=== PATIENT | female | born 1990 | race African-American/Black ===

== ENCOUNTER 2017-08-07 15:40 | Emergency (ER) | payer MEDICAID ==
[~2017-08-07] VITALS: Ht 175.3 cm; Wt 81.6 kg
[~2017-08-07 15:40] MED LIST: ACETAMINOPHEN-1 EAC1 ORAL; ATIVAN2 MG ORAL; BUPROPION XL300 M1 PO; BUPROPION XL300 MG ORAL; CYCLOBENZAPRINE10 MG ORAL; GABAPENTIN600 MG ORAL; IBUPROFEN600 MG ORAL; KEFLEX500 MG ORAL; PROZAC10 MG ORAL; PROZAC20 MG ORAL; TRAMADOL HCL50 MG ORAL; TYLENOL EXTRA500 MG ORAL; ZITHROMAX250 MG ORAL
[2017-08-07] MEDS ORDERED: OMEPRAZOLE20 M2 ORAL (16:06)
--- NOTE | 2017-08-07 16:59 | Diagnostic Imaging Report ---
Indication: left ankle pain Comparison: None Findings: 3 views of the left ankle obtained. No acute fracture, malalignment, periostitis, or osteochondral defects are identified. Generalized soft tissue swelling is present, nonspecific in nature. Impression: No acute findings. Soft tissue swelling
--- NOTE | 2017-08-07 17:02 | Diagnostic Imaging Report ---
Indication: Pain right ankle Comparison: 07/03/2018 Findings: 3 views of the right ankle obtained. No acute fracture, malalignment, periostitis, or osteochondral defects are identified. Soft tissue swelling is present, nonspecific in nature. Impression: Soft tissue swelling
[2017-08-07] MEDS ORDERED: NORCO 5-325 TA1 EACH ORAL (17:57)
[2017-08-07] MEDS ORDERED: ULTRA-LIGHT RO1 EACH MC (17:58)
[2017-08-07 18:13] VITALS: BP 94/69
--- NOTE | 2017-08-07 23:05 | Emergency Room Report ---
History of Present Illness General Chief Complaint: Lower Extremity Injury Source: Patient Present Illness HPI 27-year-old female presents ER complaining of bilateral ankle pain. Patient states the pain has been present for one week following jogging. Patient denies history of acute injury to either ankle. Patient states she has difficulty ambulating secondary to pain. Patient requesting pain medication and xrays for assessment of pain. Patient denies fever, nausea, vomiting Allergies: Coded Allergies: No Known Allergies (Verified Allergy, Unknown, 07/31/09) Patient History Past Medical History: see triage record Social History: Denies: smoking, alcohol use, drug use Last Menstrual Period: on period Immunizations: UTD Reviewed Nursing Documentation: PMH: Agreed, PSxH: Agreed Nursing Documentation-PMH Past Medical History: No History, Except For Hx Gastrointestinal Problems: Yes - GERD Hx Neurological Problems: No - CYSTRIC HYDROMA Review of Systems All Other Systems: negative except mentioned in HPI Physical Exam Vital Signs Date Time Temp Pulse Resp B/P (MAP) Pulse Ox O2 Delivery O2 Flow Rate FiO2 08/07/17 16:01 98.4 84 14 94/69 96 Room Air Sp02 EP Interpretation: reviewed, normal General Appearance: alert, GCS 15, non-toxic, mild distress Head: normocephalic, atraumatic Eyes: bilateral eye normal inspection, bilateral eye PERRL Respiratory: lungs clear, normal breath sounds, no respiratory distress, speaking full sentences Cardiovascular #1: regular rate, rhythm Cardiovascular #2: 2+ dorsalis pedis (R), 2+ dorsalis pedis (L) Musculoskeletal: back normal, digits/nails normal, gait/station normal, non- tender, no calf tenderness, decreased range of motion - ankles secondary to pain , Sofy's Sign negative, swelling Neurologic: alert, oriented x3, responsive, sensory intact, abnormal gait Skin: normal color, no rash, warm/dry, other - no erythema, no ecchymosis, no blisters, no vesicles Lymphatic: no adenopathy Medical Decision Making PA Attestation Dr. Garza is my supervising physician with whom patient management has been discussed with. Diagnostic Impression: Primary Impression: Ankle pain ER Course Pt. presents to the ED c/o bilateral ankle pain. Ddx considered but are not limited to fracture, sprain, strain, contusion, cellulitis, DVT. Vital signs: are WNL, pt. is afebrile ORDERS: X-ray of the left ankle was ordered, results show soft tissue swelling, no acute fracture, per the official radiology report. X-ray of the right ankle was ordered, results show soft tissue swelling, no acute fracture, per the official radiology report. ED INTERVENTIONS: -Ibuprofen for pain JESÚS wrap placed over both ankles. The affected ankles were checked afterwards by me showing good alignment and support with distal neurovascular functioning intact. Crutches provided at patient request. DISCHARGE: -Rx provided for [place] for pain symptoms. -Rx provided for a walker. Patient instructed and understands that she will need to contact a medical supply store to find a walker to use. At this time pt. is stable for d/c to home. Will provide printed patient care instructions, and any necessary prescriptions. Patient instructed to follow with primary care provider in 3 - 5 days and to request further orthopedic follow-up. Care plan and follow up instructions have been discussed with the patient prior to discharge. Take medications as directed. Patient questions asked and answered. ER precautions given, patient instructed to return to ER immediately for any new or worsening of symptoms. Other X-Ray Diagnostic Results Other X-Ray Diagnostic Results #1: X-Ray ordered: Left ankle # of Views/Limited Vs Complete: 3 View Indication: Pain EP Interpretation: Yes PA Xray: Interpretation reviewed, by supervising MD, and agrees with findings. Interpretation: no dislocation, no fractures, other - Soft tissue swelling Impression: No acute disease PA Scribe Text Luke Louis PA-C Other X-Ray Diagnostic Results #2: X-Ray ordered: Right Ankle # of Views/Limited Vs Complete: 3 View Indication: Pain EP Interpretation: Yes Interpretation: no dislocation, no fractures, other - Soft tissue swelling Impression: No acute disease PA Scribe Text Luke Louis PA-C Last Vital Signs Date Time Temp Pulse Resp B/P (MAP) Pulse Ox O2 Delivery O2 Flow Rate FiO2 08/07/17 18:13 98.4 14 94/69 96 Room Air 08/07/17 16:01 84 Status: unchanged Reevaluation Impression Patient requesting crutches to go home with to aid in walking until walker prescription can be turned in. Patient called medical billing service office and they were closed, states she will get walker the following day. Disposition: HOME, SELF-CARE Condition: Stable Scripts Walker (ULTRA-LIGHT ROLLATOR) 1 Each Each EACH MC, #1 Prov: Rojelio Louis 08/07/17 Hydrocodone Bit/Acetaminophen 5-325* (NORCO 5-325*) 1 Each Tablet 1 TAB ORAL Q6H Y for For Pain, #10 TAB 0 Refills Prov: Rojelio Louis 08/07/17 Referrals: [facility]ERR[facility] (PCP) Patient Instructions: Ankle Pain Additional Instructions: Followup with primary care provider in 3 -5 days. Take medications as directed. Medications may cause drowsiness, do not take while driving, operating machinery, or with alcohol. Use walker for assistance when moving. Patient questions asked and answered. ER precautions given, patient instructed to return to ER immediately for any new or worsening of symptoms. Rojelio Louis Aug 07, 2017 23:05
== END 2017-08-07 19:00 | disposition home or self-care (01) ==
LOC: EMR 18:50
DX: M25.572 Pain in left ankle and joints of left foot (principal); M25.571 Pain in right ankle and joints of right foot; K21.9 Gastro-esophageal reflux disease without esophagitis
CPT/HCPCS: 99284

== ENCOUNTER 2018-02-02 10:12 | Emergency (ER) | payer MEDICAID, OTHER ==
[~2018-02-02] VITALS: Ht 175.3 cm; Wt 113.4 kg
[~2018-02-02 10:12] MED LIST changes: +NORCO 5-325 TA1 EACH ORAL; +OMEPRAZOLE20 M2 ORAL; +ULTRA-LIGHT RO1 EACH MC
[2018-02-02 10:30] VITALS: BP 110/27
[2018-02-02] MEDS ORDERED: AMOXICILLIN500 MG ORAL (11:09)
[2018-02-02] MEDS ORDERED: PROMETHAZINE-C118 M1 ORAL (11:09)
[2018-02-02 11:40] VITALS: BP_SYST 110; BP_SYST 115; BP_DIAS 24; BP_DIAS 27
--- NOTE | 2018-02-04 14:47 | Emergency Room Report ---
History of Present Illness General Chief Complaint: Upper Respiratory Illness Source: Patient Present Illness HPI 27-year-old female presents ED for evaluation. Patient complaining of cough and congestion for 2 weeks. States cough is productive with greenish phlegm. Also notes body aches, 4 out of 10, dull, nonradiating. Afebrile. States she is attempted to relieve symptoms with [id number] medications without improvement. Denies smoking. Denies history of asthma. Denies sick contacts or recent travel. No other aggravating relieving factors. Denies any other associated symptoms Allergies: Coded Allergies: No Known Allergies (Verified Allergy, Unknown, 07/31/09) Patient History Past Medical History: GERD Past Surgical History: none Pertinent Family History: none Social History: Denies: smoking, alcohol use, drug use Last Menstrual Period: last week Now: No Immunizations: UTD Reviewed Nursing Documentation: PMH: Agreed; PSxH: Agreed Nursing Documentation-PMH Past Medical History: No Stated History Hx Gastrointestinal Problems: Yes - GERD Hx Neurological Problems: No - CYSTRIC HYDROMA Review of Systems All Other Systems: negative except mentioned in HPI Physical Exam Vital Signs Date Time Temp Pulse Resp B/P (MAP) Pulse Ox O2 Delivery O2 Flow Rate FiO2 02/02/18 10:14 98.0 80 20 103/75 96 Room Air 98.1 02/02/18 10:40 100 Sp02 EP Interpretation: reviewed, normal General Appearance: no apparent distress, alert, GCS 15, non-toxic Head: normocephalic, atraumatic Eyes: bilateral eye normal inspection, bilateral eye PERRL ENT: hearing grossly normal, normal pharynx, no angioedema, normal voice Neck: full range of motion, supple/symm/no masses Respiratory: chest non-tender, normal breath sounds, crackles, speaking full sentences Cardiovascular #1: regular rate, rhythm, no edema Cardiovascular #2: 2+ carotid (R), 2+ carotid (L), 2+ radial (R), 2+ radial (L) , 2+ dorsalis pedis (R), 2+ dorsalis pedis (L) Gastrointestinal: normal bowel sounds, non tender, soft, non-distended, no guarding, no rebound Rectal: deferred Genitourinary: normal inspection, no CVA tenderness Musculoskeletal: back normal, gait/station normal, normal range of motion, non- tender Neurologic: alert, oriented x3, responsive, motor strength/tone normal, sensory intact, speech normal Psychiatric: judgement/insight normal, memory normal, mood/affect normal, no suicidal/homicidal ideation Reflexes: 3+ bicep (R), 3+ bicep (L), 3+ tricep (R), 3+ tricep (L), 3+ knee (R) , 3+ knee (L) Skin: normal color, no rash, warm/dry, well hydrated Lymphatic: no adenopathy Medical Decision Making Diagnostic Impression: Primary Impression: Atypical pneumonia ER Course Hospital Course 27-year-old female presents ED complaining of bodyaches and cough x2 weeks Differential diagnoses include: URI, pharyngitis, otitis media, asthma Clinical course Patient placed on stretcher. After initial history, physical exam reveals a female in no acute distress. Bilateral TM unremarkable. No pharyngeal erythema. No tonsillar exudates. No lymphadenopathy. + crackles on exam. abdomen soft. Presentation consistent with atypical pneumonia. Given presentation, i will prescribe abx Diagnosis - atypical pneumonia Stable and discharged home with Rx amoxiillin, promethazine/codeine. Instructed to followup with PMD. Return to ED if symptoms recur or worsen Last Vital Signs Date Time Temp Pulse Resp B/P (MAP) Pulse Ox O2 Delivery O2 Flow Rate FiO2 02/02/18 11:40 98.1 87 14 115/24 100 Room Air 98.1 02/02/18 11:40 100 Status: improved Disposition: HOME, SELF-CARE Condition: Stable Scripts Codeine/Promethazine Hcl* (PROMETHAZINE-CODEINE SYRUP*) 118 Ml Syrup 5 ML ORAL Q6H PRN for For Cough, #118 ML 0 Refills Prov: Sky Garza MD 02/02/18 Amoxicillin* (AMOXIL*) 500 Mg Capsule 500 MG ORAL THREE TIMES A DAY, #21 CAP Prov: Sky Garza MD 02/02/18 Patient Instructions: Community-Acquired Pneumonia, Adult, [id number] Sky Garza MD Feb 04, 2018 14:47
== END 2018-02-02 11:40 | disposition home or self-care (01) ==
LOC: EMR 10:50
DX: J18.9 Pneumonia, unspecified organism (principal); K21.9 Gastro-esophageal reflux disease without esophagitis
CPT/HCPCS: 99283

== ENCOUNTER 2020-04-10 19:42 | Emergency (ER) | payer MEDICAID, OTHER ==
[~2020-04-10] VITALS: Ht 175.3 cm; Wt 104.3 kg
[2020-04-10 19:42] VITALS: BP 140/78
[~2020-04-10 19:42] MED LIST changes: +AMOXICILLIN500 MG ORAL; +PROMETHAZINE-C118 M1 ORAL
--- NOTE | 2020-04-10 19:42 | NUR ---
ED Nurse Note: walked in to ed c/o vaginal burning pain onset 1 wk ago that gets worse during urination. pt states partner was also having similar symptoms. vss, nad, aaox4, ambulatory, urine collected and sent to lab
[2020-04-10] MEDS ORDERED: Azithromycin 250mg tab ORAL ONE (20:00)
[2020-04-10] MEDS ORDERED: Lidocaine 1% MPF 10mg/ml 5ml INJ ONE (20:00)
[2020-04-10 20:16] LABS: APPEARANCE,URINE CLEAR; BILIRUBIN, URINE NEGATIVE (NEGATIVE); COLOR,URINE PALE YELLOW; GLUCOSE, URINE (UA) NEGATIVE (NEGATIVE); KETONES,URINE NEGATIVE (NEGATIVE); LEUKOCYTE ESTERASE ,URINE 2+ (NEGATIVE); NITRITE,URINE NEGATIVE (NEGATIVE); PH,URINE 7 (4.5-8.0); PROTEIN,URINE NEGATIVE (NEGATIVE); UROBILINOGEN,URINE NORMAL MG/DL (0.0-1.0)
--- NOTE | 2020-04-10 20:55 | Emergency Room Report ---
History of Present Illness General Chief Complaint: Female Urogenital Problems Source: Patient, Medical Record Present Illness HPI 30-year-old female with no history here complaining frequency and urgency and vaginal discharge. Reports that started after she was sexually active with her partner. Denies using any protection. Patient is pressure control pills however does not recall the name. Denies any low back pain, fever and chills, nausea or vomiting. Resting comfortably stable vital signs. Denies any vaginal pruritus. Allergies: Coded Allergies: No Known Allergies (Verified Allergy, Unknown, 07/31/09) COVID-19 Screening Contact w/high risk pt: No Experienced COVID-19 symptoms?: No COVID-19 Testing performed FIRST COOK: No Patient History Past Medical History: see triage record Past Surgical History: none Pertinent Family History: none Last Menstrual Period: unk Now: No : 0 Para: 0 Immunizations: UTD Reviewed Nursing Documentation: PMH: Agreed; PSxH: Agreed Nursing Documentation-PMH Hx Gastrointestinal Problems: Yes - GERD Hx Neurological Problems: No - CYSTRIC HYDROMA Review of Systems All Other Systems: negative except mentioned in HPI Physical Exam Vital Signs Date Time Temp Pulse Resp B/P (MAP) Pulse Ox O2 Delivery O2 Flow Rate FiO2 04/10/20 19:42 97.3 79 18 140/78 99 Room Air Sp02 EP Interpretation: reviewed, normal General Appearance: no apparent distress, alert, GCS 15, non-toxic Head: normocephalic, atraumatic Eyes: bilateral eye normal inspection, bilateral eye PERRL ENT: hearing grossly normal, normal pharynx, no angioedema, normal voice Neck: full range of motion, supple/symm/no masses Respiratory: chest non-tender, lungs clear, normal breath sounds, speaking full sentences Cardiovascular #1: regular rate, rhythm, no edema Gastrointestinal: normal bowel sounds, non tender, soft, non-distended, no guarding, no rebound Rectal: deferred Genitourinary: no CVA tenderness Musculoskeletal: back normal Neurologic: alert, motor strength/tone normal, oriented x3, sensory intact, responsive, speech normal Psychiatric: judgement/insight normal, memory normal, mood/affect normal, no suicidal/homicidal ideation Skin: no rash Lymphatic: no adenopathy Medical Decision Making PA Attestation ALL Diagnosis and treatment plan reviewed and discussed with my supervising physician Dr. Mendoza Diagnostic Impression: Primary Impression: Possible exposure to STD Additional Impression: UTI (urinary tract infection) ER Course 30-year-old female with no history here complaining frequency and urgency and vaginal discharge. Reports that started after she was sexually active with her partner. Denies using any protection. Patient is pressure control pills however does not recall the name. Denies any low back pain, fever and chills, nausea or vomiting. Resting comfortably stable vital signs. Denies any vaginal pruritus. Ddx considered but are not limited to: vaginitis, yeast infection, BV, ch lamydia, Gohnorrea, syphylis, HIV, herpes 1 or 2 Vital signs: are WNL, pt. is afebrile H&PE are most consistent with : UTI, possible exposure to STD most likely chlamydia or gonorrhea ORDERS: UA, urince cx, urine , Keflex ED INTERVENTIONS: Rocephin IM, azithromycin p.o. DISCHARGE: At this time pt. is stable for d/c to home. Will provide printed patient care instructions, and any necessary prescriptions. Care plan and follow up instructions have been discussed with the patient prior to discharge. Gave a list of STD clinics for patient to follow-up with, patient take medication as directed, condom use advised, if worsening symptoms return to the emergency room Last Vital Signs Date Time Temp Pulse Resp B/P (MAP) Pulse Ox O2 Delivery O2 Flow Rate FiO2 04/10/20 19:43 98.2 89 20 132/85 (101) 99 Room Air Disposition: HOME, SELF-CARE Condition: Stable Scripts Cephalexin* (KEFLEX*) 500 Mg Capsule 500 MG ORAL EVERY 12 HOURS for 7 Days, #14 CAP 0 Refills Prov: Ezequiel García 04/10/20 Patient Instructions: Chlamydia, Female, [id number], Gonorrhea, Urinary Tract Infection Additional Instructions: Take medication as directed, follow-up with primary care provider, if worsening symptom return to the emergency room Ezequiel García Apr 10, 2020 20:55
[2020-04-10 21:03] VITALS: BP 124/68
[2020-04-10] MEDS ORDERED: CEPHALEXIN500 MG ORAL (21:03)
[2020-04-10 21:08] VITALS: BP 124/68
--- NOTE | 2020-04-10 21:08 | NUR ---
ER DISCHARGE NOTE: Patient is cleared to be discharged per ERMD, pt is aox4, on room air, with stable vital signs. Pt was given dc and prescription instructions. Pt was able to verbalize understanding; instructed pt to follow up with primary care physican within one week. Pt id band removed. Pt is able to ambulate with steady gait. Pt took all belongings.
== END 2020-04-10 21:08 | disposition home or self-care (01) ==
LOC: EMR 21:05
DX: N39.0 Urinary tract infection, site not specified (principal); Z20.2 Contact with and (suspected) exposure to infections with a predominantly sexual mode of transmission; K21.9 Gastro-esophageal reflux disease without esophagitis
CPT/HCPCS: 81003; 81025; 87086; 96372; 96374; J0696; Q0144; Z7502; 99284